=== PATIENT | female | born 1965 | race Two or more races ===

== ENCOUNTER 2018-12-03 12:23 | Day surgery (SDC) | payer BC ==
[~2018-12-03] VITALS: Ht 157.5 cm; Wt 74.2 kg
[~2018-12-03 12:23] MED LIST: AMLODIPINE; AZELASTINE; BUSPIRONE; CARVEDILOL; FENOFIBRATE; LEVOTHYROXINE; MIRTAZIPINE; PRAVASTATIN; PREVACID; TRAZODONE; [UNRECOGNIZED DRUG - OTHER]; [UNRECOGNIZED DRUG - OTHER]
[2018-12-03 13:35] VITALS: Ht 157.5 cm; Wt 74.2 kg
[2018-12-03 15:05] VITALS: BP 133/80; PULSE 61; RESP 20
[2018-12-03] MEDS ORDERED: PROPOFOL 20 ML ONE (15:25)
[2018-12-03] MEDS ORDERED: PROPOFOL 200 MG INJ ONE (15:26)
[2018-12-03] MEDS ORDERED: ACETAMINOPHEN 1000MG/100ML IV 100 ML IVPB ONE (16:30)
[2018-12-03 17:10] VITALS: BP 150/78; RESP 16
== END 2018-12-03 16:43 | disposition home or self-care (01) ==
LOC: GIL 12:23
PROVIDERS: ATTEND Internal Medicine Gastroenterology
DX: D12.8 Benign neoplasm of rectum (principal); K64.8 Other hemorrhoids; K64.4 Residual hemorrhoidal skin tags; K57.30 Diverticulosis of large intestine without perforation or abscess without bleeding; K29.50 Unspecified chronic gastritis without bleeding; I10 Essential (primary) hypertension; E03.9 Hypothyroidism, unspecified
CPT/HCPCS: 43239; 45380; 88305; 88312; J0131; Z7610